=== PATIENT | female | born 1980 | race Caucasian/White ===

== ENCOUNTER 2020-03-02 00:07 | Emergency (ER) | payer MEDICAID ==
--- NOTE | 2020-03-02 00:32 | ERPHSYRPT ---
- History of Present Illness Time Seen by Provider: 03/02/20 00:30 Source: patient Exam Limitations: no limitations Physician History: Patient is a 39-year-old female presents to our ED via transit police officer for evaluation. Please officer told button maker that she may have taking pills. Patient ambulated into our ED. Upon evaluation patient was in good spirits. She was conversant no acute distress. Patient stated that her and her significant other got an argument tonight. She did not reveal the nature of the argument. Patient significant other yell to patient "you are to me". Patient replied "I wish". Patient stated she went for a walk to calm down. Patient significant other reportedly called police. Patient states that she did not ingest any pills. She denies having access to any pills. She denies ingesting any sort of toxic substances. Patient states she is currently asymptomatic. Patient requesting discharge. Patient refusing any sort of blood work or urinalysis. Patient agreed to physical exam only. Patient states that she does not want to be here. Patient voices no other complaints or concerns. Timing/Duration: today Severity of Symptoms-Max: none Severity of Symptoms-Current: none Context related to: significant other Suicidal thoughts: other (Patient denies homicidal ideation suicidal ideation.) Associated Symptoms: denies symptoms Previous symptoms: no prior history Allergies/Adverse Reactions: No Known Drug Allergies Allergy (Unverified 03/02/20 00:21) Home Medications: No Reportable Medications [No Reported Medications] 03/02/20 [History] - Review of Systems Constitutional: No Symptoms, No Fever, No Chills Eyes: No Symptoms Ears, Nose, & Throat: No Symptoms Respiratory: No Symptoms, No Cough, No Dyspnea Cardiac: No Symptoms, No Chest Pain, No Edema, No Syncope Abdominal/Gastrointestinal: No Symptoms, No Abdominal Pain, No Nausea, No Vomiting, No Diarrhea Genitourinary Symptoms: No Symptoms, No Dysuria Musculoskeletal: No Symptoms, No Back Pain, No Neck Pain Skin: No Symptoms, No Rash Neurological: No Symptoms, No Dizziness, No Focal Weakness, No Sensory Changes Psychological: No Symptoms Endocrine: No Symptoms Hematologic/Lymphatic: No Symptoms Immunological/Allergic: No Symptoms All Other Systems: Reviewed and Negative - Nursing Vital Signs Nursing Vital Signs: Initial Vital Signs Temperature 98.3 F 03/02/20 00:22 Pulse Rate 110 H 03/02/20 00:22 Respiratory Rate 18 03/02/20 00:22 Blood Pressure 160/107 03/02/20 00:22 O2 Sat by Pulse Oximetry 98 03/02/20 00:22 Pain Scale Pain Intensity 0 - Physical Exam General Appearance: no apparent distress Eyes, Ears, Nose, Throat Exam: normal ENT inspection, moist mucous membranes Neck Exam: normal inspection, non-tender, supple Respiratory Exam: normal breath sounds, lungs clear, No respiratory distress Cardiovascular Exam: regular rate/rhythm, No edema Gastrointestinal/Abdominal Exam: soft, No tenderness, No distention Extremities Exam: normal inspection, normal range of motion, No evidence of injury, No edema Current Suicidality: denies suicide plan Neurological Exam: alert, visual effects editor II-XII nml as tested, oriented x 3 Appearance: appropriate appearance Behavior/Eye Contact/Speech: alert & cooperative Thoughts/Hallucinations: normal thought pattern, no apparent hallucination Skin Exam: normal color, warm, dry, No rash SpO2 Interpretation: normal SpO2: 99 O2 Delivery: Room Air - Course Nursing assessment & vital signs reviewed: Yes - Progress Progress: improved Progress Note: 03/02/20 00:49 Patient was initially mildly tachycardic upon arrival. Patient states she was upset that she was brought to the ED. Patient eventually calmed down. Vitals normalized. Patient maintained that she is asymptomatic. Patient adamantly denies ingesting any toxic substances. She is alert and oriented x4. Patient adamantly refusing any sort of work-up. No blood work. No urinalysis. Patient states she recently got a new job at [employer] and is expected to start her job in the morning. Patient requesting discharge she can attend her new job. Patient denies homicidal and suicidal ideation. We will discharge patient AGAINST MEDICAL ADVICE. Patient understands that leaving AGAINST MEDICAL ADVICE can result in delayed diagnosis, increased risk of morbidity, mortality, short and long-term disability including . In spite of her risks she has decided to leave AGAINST MEDICAL ADVICE. Patient understand that she may return to our ED at any point for a reevaluation. Patient advised to follow-up with her primary care doctor within 48 hours for reevaluation. Patient discharged AGAINST MEDICAL ADVICE. Patient states her significant other is waiting for her in the parking lot. She states they are no longer on bad terms. 03/02/20 00:52 Counseled pt/family regarding: diagnosis, need for follow-up - Departure Departure Disposition: AMA Clinical Impression: Encounter for medical screening examination Condition: Stable Critical Care Time: No Referrals: WILIAN HANNA [ACTIVE STAFF] - Additional Instructions: Discharge/Care Plan JOSEE SEWELL was seen on 03/02/20 in the Emergency Room. The patient was counseled regarding Diagnosis,Lab results, Imaging studies, need for follow up and when to return to the Emergency Room. Prescriptions given: Discharge Note I have spoken with the patient and/or caregivers. I have explained the patient's condition, diagnosis and treatment plan based on the information available to me at this time. I have answered the patient's and/or caregiver's questions and addressed any concerns. The patient and/or caregivers have as good understanding of the patient's diagnosis, condition and treatment plan as can be expected at this point. The vital signs have been stable. The patient's condition is stable and appropriate for discharge from the emergency department. The patient will pursue further outpatient evaluation with the primary care physician or other designated or consulting physician as outlined in the discharge instructions. The patient and/or caregivers are agreeable to this plan of care and follow-up instructions have been explained in detail. The patient and/or caregivers have received these instruction. The patient/and or caregivers are aware that any significant change in condition or worsening of symptoms should prompt an immediate return to this or the closest emergency department or call 911.
[2020-03-02 00:40] VITALS: O2SAT 99
[2020-03-02 00:51] VITALS: BP 126/88; PULSE 99
== END 2020-03-02 00:45 | disposition home or self-care (01) ==
LOC: ED 00:07
DX: Z04.6 Encounter for general psychiatric examination, requested by authority (principal)
CPT/HCPCS: 99284

== ENCOUNTER 2020-05-24 14:07 | Emergency (ER) | payer OTHER ==
--- NOTE | 2020-05-24 14:19 | ERPHSYRPT ---
- History of Present Illness Time Seen by Provider: 05/24/20 14:30 Source: patient Physician History: Patient is a 39-year-old female presents to our emergency department with complaints of a vibrating foreign body in her vagina. Patient states that her and her significant other were having intercourse. Approximately 20 minutes prior to arrival patient inserted a "vibrator". Patient states the vibrator went into deeper than expected and she was unable to retrieve it. Patient tried pulling it out however she states she inadvertently pushed it in deeper. No trauma. No fever. No abdominal pain. No diarrhea. No rash. No vaginal discharge. Patient not concerned with STI. Symptoms are mild in intensity. Patient otherwise asymptomatic. She voices no other complaints concerns at this time. Timing/Duration: today Severity: mild Modifying Factors: Improves With: nothing Associated Symptoms: denies symptoms Allergies/Adverse Reactions: No Known Drug Allergies Allergy (Verified 05/24/20 14:14) Home Medications: PARoxetine HCL [Paroxetine HCl] 1 tab PO DAILY 05/24/20 [History] Hx Tetanus, Diphtheria Vaccination/Date Given: Yes Hx Influenza Vaccination/Date Given: No Hx Pneumococcal Vaccination/Date Given: No - Review of Systems Constitutional: No Symptoms, No Fever, No Chills Eyes: No Symptoms Ears, Nose, & Throat: No Symptoms Respiratory: No Symptoms, No Cough, No Dyspnea Cardiac: No Symptoms, No Chest Pain, No Edema, No Syncope Abdominal/Gastrointestinal: No Symptoms, No Abdominal Pain, No Nausea, No Vomiting, No Diarrhea Genitourinary Symptoms: No Symptoms, No Dysuria Musculoskeletal: No Symptoms, No Back Pain, No Neck Pain Skin: No Symptoms, No Rash Neurological: No Symptoms, No Dizziness, No Focal Weakness, No Sensory Changes Psychological: No Symptoms Endocrine: No Symptoms Hematologic/Lymphatic: No Symptoms Immunological/Allergic: No Symptoms All Other Systems: Reviewed and Negative - Past Medical History Pertinent Past Medical History: No - Past Surgical History Past Surgical History: Yes Musculoskeletal: Orthopedic Surgery Other Surgical History: rt middle finger - Social History Smoking Status: Current every day smoker Exposure to second hand smoke: Yes Drug Use: none Patient Lives Alone: No - Nursing Vital Signs Nursing Vital Signs: Initial Vital Signs Temperature 98.0 F 05/24/20 14:20 Pulse Rate 100 H 05/24/20 14:20 Respiratory Rate 18 05/24/20 14:20 Blood Pressure 122/81 05/24/20 14:20 O2 Sat by Pulse Oximetry 100 05/24/20 14:20 Pain Scale Pain Intensity 0 - Physical Exam General Appearance: no apparent distress, alert Eye Exam: PERRL/EOMI, eyes nml inspection Ears, Nose, Throat Exam: normal ENT inspection, TMs normal, pharynx normal, moist mucous membranes Neck Exam: normal inspection, non-tender, supple, full range of motion Respiratory Exam: normal breath sounds, airway intact, No respiratory distress, No accessory muscle use Cardiovascular Exam: regular rate/rhythm, normal peripheral pulses Gastrointestinal/Abdomen Exam: soft, normal bowel sounds, No tenderness, No mass Pelvic Exam: other (Vibrating foreign body observed in vagina. Vibrating foreign body retrieved. No complications. No injury to the vaginal mucosa.), No adnexal tenderness, No cervical motion tenderness, No vaginal bleeding, No vaginal discharge Back Exam: normal inspection, normal range of motion, No CVA tenderness, No vertebral tenderness Extremity Exam: normal inspection, normal range of motion, pelvis stable Neurologic Exam: alert, oriented x 3, cooperative, normal mood/affect, nml cerebellar function, nml station & gait, sensation nml, No motor deficits Skin Exam: normal color, warm, dry, No rash Lymphatic Exam: No adenopathy SpO2 Interpretation: normal SpO2: 100 O2 Delivery: Room Air - Course Nursing assessment & vital signs reviewed: Yes - Progress Progress: improved Counseled pt/family regarding: diagnosis, need for follow-up - Departure Departure Disposition: Home Clinical Impression: Foreign body in vagina Condition: Stable Critical Care Time: No Referrals: DOCTOR,NO FAMILY [NON-STAFF PHY W/O PRIVILEGES] - WILIAN HANNA [ACTIVE STAFF] - Instructions: Vaginal Foreign Body Additional Instructions: Discharge/Care Plan JOSEE SEWELL was seen on 05/24/20 in the Emergency Room. The patient was counseled regarding Diagnosis,Lab results, Imaging studies, need for follow up and when to return to the Emergency Room. Prescriptions given: Discharge Note I have spoken with the patient and/or caregivers. I have explained the patient's condition, diagnosis and treatment plan based on the information available to me at this time. I have answered the patient's and/or caregiver's questions and addressed any concerns. The patient and/or caregivers have as good understanding of the patient's diagnosis, condition and treatment plan as can be expected at this point. The vital signs have been stable. The patient's condition is stable and appropriate for discharge from the emergency department. The patient will pursue further outpatient evaluation with the primary care physician or other designated or consulting physician as outlined in the discharge instructions. The patient and/or caregivers are agreeable to this plan of care and follow-up instructions have been explained in detail. The patient and/or caregivers have received these instruction. The patient/and or caregivers are aware that any significant change in condition or worsening of symptoms should prompt an immediate return to this or the closest emergency department or call 911.
[2020-05-24 14:24] VITALS: BP 122/81; PULSE 100; O2SAT 100
== END 2020-05-24 14:28 | disposition home or self-care (01) ==
LOC: ED 14:07
DX: T19.2XXA Foreign body in vulva and vagina, initial encounter (principal)
CPT/HCPCS: 99283